=== PATIENT | male | born 2000 | race Caucasian/White ===

== ENCOUNTER 2022-02-01 04:31 | Emergency (ER) | payer OTHER ==
--- NOTE | 2022-02-01 05:07 | ERPHSYRPT ---
- History of Present Illness Time Seen by Provider: 02/01/22 05:00 Source: patient Exam Limitations: no limitations Patient Subjective Stated Complaint: pt states "I was in a softball tournament and it just got done at 0400. I was pitching and a softball came and hit me in the ankle." Triage Nursing Assessment: Pt ambulatory to bed by self, pt alert and oriented x3, pt c/o R ankle pain after playing in a softball tournament, pt was pitching and got hit in the ankle by a softball, R ankle swollen, no bruising at this time, pt bilateral +2 pedal pulses, cap refill less than 2 secs bilateral Physician History: This is a 21-year-old white male patient who was pitching at a softball game. The game completed prior to arrival to the emergency department. At 1 point, the patient was pitching in the ball was hit and came back and hit him in the right ankle. Patient arrives to emergency department with a swollen tender right ankle. Method of Injury: sports injury Occurred: just prior to arrival Quality: constant, aching Severity of Pain-Max: moderate Severity of Pain-Current: moderate Lower Extremities Pain: ankle: right Modifying Factors: Improves With: movement Associated Symptoms: other (Hurts to bear weight but can do so) Allergies/Adverse Reactions: No Known Drug Allergies Allergy (Verified 02/01/22 04:36) Home Medications: No Reportable Medications [No Reported Medications] 02/01/22 [History] Hx Tetanus, Diphtheria Vaccination/Date Given: No Hx Influenza Vaccination/Date Given: No Hx Pneumococcal Vaccination/Date Given: No Immunizations Up to Date: No Travel Risk - International Travel Have you traveled outside of the country in past 3 weeks: No - Coronavirus Screening Are you exhibiting any of the following symptoms?: No Close contact with a COVID-19 positive Pt in past 14-21 Days: No - Vaccine Status Have you recieved a Covid-19 vaccination: No - Review of Systems Constitutional: No Symptoms Eyes: No Symptoms Ears, Nose, & Throat: No Symptoms Respiratory: No Symptoms Cardiac: No Symptoms Abdominal/Gastrointestinal: No Symptoms Genitourinary Symptoms: No Symptoms Musculoskeletal: Injury (Right ankle) Skin: No Symptoms Neurological: No Symptoms Psychological: No Symptoms Endocrine: No Symptoms Hematologic/Lymphatic: No Symptoms Immunological/Allergic: No Symptoms All Other Systems: Reviewed and Negative - Past Medical History Pertinent Past Medical History: Yes Neurological History: No Pertinent History ENT History: No Pertinent History Cardiac History: No Pertinent History Respiratory History: No Pertinent History Endocrine Medical History: No Pertinent History Musculoskeletal History: No Pertinent History GI Medical History: Other History: No Pertinent History Psycho-Social History: No Pertinent History Male Reproductive Disorders: No Pertinent History Other Medical History: bowel obstruction - Past Surgical History Past Surgical History: Yes Neuro Surgical History: No Pertinent History Cardiac: No Pertinent History Respiratory: No Pertinent History Gastrointestinal: Appendectomy, Bowel Surgery Genitourinary: No Pertinent History Musculoskeletal: No Pertinent History Male Surgical History: No Pertinent History - Social History Smoking Status: Never smoker Exposure to second hand smoke: No Drug Use: none Patient Lives Alone: No - Nursing Vital Signs Nursing Vital Signs: Initial Vital Signs Temperature 97.7 F 02/01/22 04:37 Pulse Rate 118 H 02/01/22 04:37 Respiratory Rate 18 02/01/22 04:37 Blood Pressure 137/95 02/01/22 04:37 O2 Sat by Pulse Oximetry 97 02/01/22 04:37 Pain Scale Pain Intensity 6 - Physical Exam General Appearance: no apparent distress, alert, anxiety Eyes, Ears, Nose, Throat Exam: normal ENT inspection, moist mucous membranes Neck Exam: normal inspection, non-tender, supple, full range of motion Cardiovascular/Respiratory Exam: chest non-tender, no respiratory distress Gastrointestinal/Abdominal Exam: non-tender Back Exam: normal inspection, normal range of motion, No CVA tenderness, No vertebral tenderness Hips Exam: bilateral: non-tender, normal inspection, normal range of motion, no evidence of injury Legs Exam: bilateral leg: non-tender, normal inspection, normal range of motion, no evidence of injury Knees Exam: bilateral knee: non-tender, normal inspection, normal range of motion, no evidence of injury Ankle Exam: right ankle: bone tenderness, pain, soft tissue tenderness, swelling, left ankle: non-tender, normal inspection, normal range of motion, no evidence of injury Foot Exam: bilateral foot: non-tender, normal inspection, normal range of motion, no evidence of injury Neuro/Tendon Exam: normal sensation, normal motor functions, normal tendon functions, responds to pain, no evidence tendon injury Mental Status Exam: alert, oriented x 3, cooperative Skin Exam: normal color, warm, dry SpO2 Interpretation: normal SpO2: 97 O2 Delivery: Room Air - Course Nursing assessment & vital signs reviewed: Yes Ordered Tests: Active Orders 24 hr Category Date Time Status Maximo Bandage Application -[facility] STAT Care 02/01/22 05:29 Ordered ANKLE (3 VIEWS) Stat Exams 02/01/22 04:59 Taken Medication Summary Discontinued Medications Generic Name Dose Route Start Last Admin Trade Name Oliver PRN Reason Stop Dose Admin Hydrocodone Bitart/Acetaminophen 1 tab 02/01/22 05:29 Hydrocodone/Apap 5/325 Mg Tablet PO 02/01/22 05:30 STAT ONE Ibuprofen 600 mg 02/01/22 05:29 Ibuprofen 600 Mg Tablet PO 02/01/22 05:30 STAT ONE - Progress Progress: unchanged Progress Note: 02/01/22 05:31 X-ray right ankle shows no acute fracture or dislocation. Counseled pt/family regarding: diagnosis, need for follow-up, rad results - Departure Departure Disposition: Home Clinical Impression: Contusion of right ankle Condition: Stable Critical Care Time: No Referrals: JCAROLS MEDINA [Primary Care Provider] - Follow up/PCP as directed Additional Instructions: Ice pack to area 3 times a day for the next 48 hours. Add ibuprofen 600 mg orally with food 3 times a day for the next 4 days. After you complete your [place] medication, add Tylenol 650 mg orally 3 times a day. Follow-up with your primary care provider or [facility] orthopedic clinic or Dr. Justin (podiatry) for persistent pain and swelling
[2022-02-01] MEDS ORDERED: MOTRIN 600 MG PO ONE (05:29)
[2022-02-01] MEDS ORDERED: NORCO 5/325 MG PO ONE ×2 (05:29→05:30)
[2022-02-01] MEDS ORDERED: MOTRIN 600 MG ONE (05:37)
[2022-02-01] MEDS ORDERED: NORCO 5/325 MG ONE (05:37)
[2022-02-01 05:42] VITALS: BP 147/92; PULSE 97; O2SAT 99
--- NOTE | 2022-02-01 09:13 | XRAY ---
Indication: Pain following softball injury. Comparison: None 3 view right ankle obtained. No bony, articular, or soft tissue abnormalities.
== END 2022-02-01 05:49 | disposition home or self-care (01) ==
LOC: ED 04:31
DX: S90.01XA Contusion of right ankle, initial encounter (principal); W21.07XA Struck by softball, initial encounter; Y93.64 Activity, baseball; Y92.320 Baseball field as the place of occurrence of the external cause; M25.571 Pain in right ankle and joints of right foot; Z28.310 Unvaccinated for COVID-19
CPT/HCPCS: 73610; 99283; A9270-GY